=== PATIENT | male | born 2000 | race Caucasian/White ===

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

== ENCOUNTER 2021-04-12 23:18 | Emergency (ER) | payer MEDICAID ==
[~2021-04-12] VITALS: Ht 185.5 cm; Wt 88.0 kg
[~2021-04-12 23:18] MED LIST: ASPI1TAB14 PO; ATOM25CA5 PO; CETI10TA23 PO; CLN.1T PO; FAMO20TA3 PO; FLUT12AE4 IH; HYDR-700 PO; LURA20TA PO; MAGN200T8 PO; MELA1TAB24 SL; SUCR1ORA5 PO
[2021-04-12 23:22] VITALS: BP 143/90
--- NOTE | 2021-04-12 23:36 | ED Psychosocial ---
General Chief Complaint: Psych/Social Disorder Stated Complaint: PSYCH EVAL Source: patient Exam Limitations: no limitations History of Present Illness Date Seen by Provider: Apr 12, 2021 Time Seen by Provider: 23:15 Initial Comments Patient to the ER by EMS from home with chief complaint that he made a suicidal sounding comment earlier in the evening and his staff showed up hours later and insisted he come out for a mental health screen. Patient said he was very angry at another friend and in an outburst he said that he was asking to go on standing [place] traffic [place] [address] He says he was never feeling suicidal. He does not feel suicidal now and he has not felt suicidal since 3 years ago. At that time he was in [place] and went to [facility] for 3 days inpatient psychiatric and he has felt better since then. He does not follow with a counselor anymore. The state since his meds to him and someone comes in from [facility] twice a day to give him his medicines. He lives in independent apartment. Allergies and Home Medications Allergies Coded Allergies: diphenhydramine (Unverified Allergy, Intermediate, 07/27/19) fluoxetine (Unverified Allergy, Intermediate, 07/27/19) sertraline (Unverified Allergy, Intermediate, 07/27/19) Home Medications Clonidine HCl 0.1 Mg Tablet, 0.1 MG PO BID, (Reported) Famotidine 20 Mg Tablet, 20 MG PO BID, (Reported) Patient Home Medication List Home Medication List Reviewed: Yes Review of Systems Constitutional: No chills, No diaphoresis EENTM: No ear discharge, No ear pain Respiratory: No cough, No short of breath Cardiovascular: No chest pain, No palpitations Gastrointestinal: No abdominal pain, No nausea, No vomiting Genitourinary: No discharge, No dysuria Musculoskeletal: No back pain, No joint pain Psychiatric/Neurological: See HPI (Bipolar, PTSD) All Other Systems Reviewed Negative Unless Noted: Yes Past Jbduxye-Tsemnd-Rlcihc Hx Patient Social History 2nd Hand Smoke Exposure: No Recent Hopitalizations: No Seasonal Allergies Seasonal Allergies: No Past Medical History Surgeries: No Respiratory: No Cardiac: No Neurological: No Genitourinary: No Gastrointestinal: Yes Gastroesophageal Reflux Musculoskeletal: No Endocrine: No HEENT: No Cancer: No Psychosocial: Yes Anxiety, PTSD Integumentary: No Blood Disorders: No Physical Exam Capillary Refill : Height, Weight, BMI Height: '" Weight: lbs. oz. kg; 23.00 BMI Method: General Appearance: WD/WN, no apparent distress HEENT: PERRL/EOMI, pharynx normal Neck: full range of motion, normal inspection Respiratory: lungs clear, normal breath sounds, no respiratory distress, no accessory muscle use Cardiovascular: normal peripheral pulses, regular rate, rhythm Peripheral Pulses: 2+ Radial Pulses (R), 2+ Radial Pulses (L) Neurologic/Psychiatric: alert, normal mood/affect, oriented x 3 Appearance/Memory: appropriate appearance, appropriate insight, neat, no memory impairment Behavior/Eye Contact: cooperative, good eye contact, normal speech Thoughts/Hallucinations: normal thought pattern, no apparent hallucination, other (Denies suicidal or homicidal ideation) Progress/Results/Core Measures Progress Progress Note : Time: 23:36 Progress Note Had a lengthy discussion with the patient. Gave some counseling and recommended the save line. Call the save line and will have them follow-up with him in the morning with a phone call. Patient is okay with this plan. He is adamant that he was never suicidal. He says he just had an angry outburst which is part of his bipolar disorder. Departure Impression Primary Impression: Outbursts of anger Disposition: 01 HOME, SELF-CARE Condition: Stable Departure-Patient Inst. Decision time for Depature: 23:37 Referrals: NO,LOCAL PHYSICIAN (PCP) Primary Care Physician BRADLEY BOWIE APRN (Family) Primary Care Physician Patient Instructions: NO INSTRUCTIONS GIVEN Add. Discharge Instructions: [phone] [id number] if you have any further concerns, suicidal thoughts, anger, depression or anxiety issues that you wants immediate help with. They can also help you set up counseling, or recommend treatment if you feel this would be of benefit. They will call you in the morning just to check in on you. Return to the ER at any time if you are having worsening, suicidal thoughts or other worrisome concerns. All discharge instructions reviewed with patient and/or family. Voiced understanding. CLAUDETTE CHIU Apr 12, 2021 23:36
== END 2021-04-12 23:45 | disposition home or self-care (01) ==
LOC: EDUNIT# 23:18 → ER 23:19
DX: R45.4 Irritability and anger (principal); K21.9 Gastro-esophageal reflux disease without esophagitis; Z79.899 Other long term (current) drug therapy
CPT/HCPCS: 99284

== ENCOUNTER 2022-11-23 22:10 | Emergency (ER) | payer MEDICAID ==
[~2022-11-23] VITALS: Ht 185.4 cm; Wt 71.6 kg
[~2022-11-23 22:10] MED LIST changes: -CETI10TA23 PO; +CETI10TA24 PO
[2022-11-23] MEDS ORDERED: KETOROLAC 30 MG/ML VIAL IVP ONE (22:30)
[2022-11-23] MEDS ORDERED: LACTATED RINGERS 1,000 ML IV ONE (22:30)
[2022-11-23 22:43] LABS: BASOPHILS % (AUTO) 0 % (0-10); EOSINOPHILS # (AUTO) 0.1 10^3/uL (0.0-0.3); EOSINOPHILS % (AUTO) 1 % (0-10); HEMATOCRIT 42 % (40-54); HEMOGLOBIN 14.4 g/dL (13.3-17.7); LYMPHOCYTES # (AUTO) 2.3 10^3/uL (1.0-4.0); LYMPHOCYTES % (AUTO) 30 % (12-44); MEAN CORPUSCULAR HEMOGLOBIN 30 pg (25-34); MEAN CORPUSCULAR HGB CONC 34 g/dL (32-36); MEAN CORPUSCULAR VOLUME 88 fL (80-99); MEAN PLATELET VOLUME 9.5 fL (9.0-12.2); MONOCYTES # (AUTO) 0.5 10^3/uL (0.0-1.0); MONOCYTES % (AUTO) 7 % (0-12); NEUTROPHILS # (AUTO) 4.6 10^3/uL (1.8-7.8); NEUTROPHILS % (AUTO) 61 % (42-75); PLATELET COUNT 253 10^3/uL (130-400); WHITE BLOOD COUNT 7.5 10^3/uL (4.3-11.0)
[2022-11-23 22:54] LABS: AMPHETAMINE SCREEN, URINE NEGATIVE (NEGATIVE); BARBITURATE SCREEN URINE NEGATIVE (NEGATIVE); BENZODIAZEPINES SCREEN URINE NEGATIVE (NEGATIVE); CANNABINOID SCREEN, URINE POSITIVE (NEGATIVE); COCAINE SCREEN URINE NEGATIVE (NEGATIVE); METHADONE STAT NEGATIVE (NEGATIVE); OPIATE SCREEN URINE NEGATIVE (NEGATIVE); OXYCODONE STAT NEGATIVE (NEGATIVE); PROPOXYPHENE STAT NEGATIVE (NEGATIVE); TRICYCLIC ANTIDEPRESSANTS SCRE NEGATIVE (NEGATIVE)
[2022-11-23 22:58] LABS: ALBUMIN 4.2 GM/DL (3.2-4.5); CHLORIDE 108 MMOL/L (98-107); POTASSIUM 3.8 MMOL/L (3.6-5.0); SODIUM 141 MMOL/L (135-145)
[2022-11-23 23:00] LABS: CALCIUM 9.4 MG/DL (8.5-10.1)
[2022-11-23 23:01] LABS: GLUCOSE 110 MG/DL (70-105); TOTAL PROTEIN 6.9 GM/DL (6.4-8.2)
[2022-11-23 23:02] LABS: CARBON DIOXIDE 23 MMOL/L (21-32)
[2022-11-23 23:03] LABS: BILIRUBIN,TOTAL 0.3 MG/DL (0.1-1.0)
[2022-11-23 23:04] LABS: ALKALINE PHOSPHATASE 93 U/L (40-136); CREATININE SERUM 0.88 MG/DL (0.60-1.30); GFR ESTIMATED 125
[2022-11-23 23:05] LABS: BUN/CREATININE RATIO 11
[2022-11-23 23:07] LABS: ALANINE AMINOTRANSFERASE 19 U/L (0-55)
--- NOTE | 2022-11-23 23:12 | ED Psychosocial ---
General Chief Complaint: Substance Abuse Stated Complaint: SUBSTANCE ABUSE Nursing Triage Note: PT TO [facility] BY EMS WITH C/O SUSPECTED UNRESPONSIVE EPSIODE. EMS REPORTS PT USED A DAB PEN AND WAS FOUND ON THE BATHROOM FLOOR. EMS STATES WHEN THEY GOT THERE PT WAS RESPONSIVE BUT HAS BEEN "LETHARGIC." PT STATES HE IS WEAK, NUMB, TIRED AND HAS A DUMONT. PT A&OX4 Source: patient, EMS Exam Limitations: no limitations History of Present Illness Date Seen by Provider: Nov 23, 2022 Time Seen by Provider: 22:11 Allergies and Home Medications Allergies Coded Allergies: diphenhydramine (Unverified Allergy, Intermediate, 07/27/19) fluoxetine (Unverified Allergy, Intermediate, 07/27/19) sertraline (Unverified Allergy, Intermediate, 07/27/19) Patient Home Medication List Aspirin/Acetaminophen/Caffeine (Excedrin Migraine Geltab) 1 Each Tablet, 1 EACH PO, (Reported) Entered as Reported by: DULCE RED on 07/27/191827 Atomoxetine HCl (Atomoxetine HCl) 25 Mg Capsule, 25 MG PO, (Reported) Entered as Reported by: DULCE RED on 07/27/191827 Cetirizine HCl (Cetirizine HCl) 10 Mg Tab.chew, 10 MG PO, (Reported) Entered as Reported by: DULCE RED on 07/27/191827 Clonidine HCl (Clonidine HCl) 0.1 Mg Tablet, 0.1 MG PO BID, (Reported) Entered as Reported by: DULCE RED on 07/27/191827 Famotidine (Acid Program Counselor (FAMOTIDINE)) 20 Mg Tablet, 20 MG PO BID, (Reported) Entered as Reported by: DULCE RED on 07/27/191827 Fluticasone/Salmeterol (Advair Hfa 115-21 Mcg Inhaler) 12 Gm Hfa.aer.ad, 12 GM IH, (Reported) Entered as Reported by: DULCE RED on 07/27/191827 Hydroxyzine HCl (Hydroxyzine HCl) 25 Mg Tablet, 25 MG PO, (Reported) Entered as Reported by: DULCE RED on 07/27/191827 Lurasidone HCl (Latuda) 20 Mg Tablet, 20 MG PO, (Reported) Entered as Reported by: DULCE RED on 07/27/191827 Magnesium Oxide (Mag-Oxide) 200 Mg Tablet, 200 MG PO, (Reported) Entered as Reported by: DULCE RED on 07/27/191827 Melatonin (Melatonin) 1 Mg Tab.subl, 1 MG SL, (Reported) Entered as Reported by: DULCE RED on 07/27/191827 Sucralfate (Carafate) 1 Gm/10 Ml Oral.susp, 1 GM PO, (Reported) Entered as Reported by: DULCE RED on 07/27/191827 Past Qgglvdr-Bfdvke-Mgzgxl Hx Patient Social History Tobacco Use?: Yes Tobacco type used: Cigarettes Smoking Status: Current Everyday Smoker Substance use?: Yes Substance type: Methamphetamine, Marijuana Substance frequency: Daily Alcohol Use?: No Pt feels they are or have been: No Immunizations Up To Date Influenza Vaccine Up-to-Date: Yes; Up-to-Date First/Initial COVID19 Vaccinat: NOV 2020 Second COVID19 Vaccination Jose: DECEMBER 2020 Third COVID19 Vaccination Date: NOV 2020 Seasonal Allergies Seasonal Allergies: No Past Medical History Surgeries: No Respiratory: No Cardiac: No Neurological: No Genitourinary: No Gastrointestinal: Yes Gastroesophageal Reflux Musculoskeletal: No Endocrine: No HEENT: No Cancer: No Psychosocial: Yes Anxiety, PTSD Integumentary: No Blood Disorders: No Physical Exam Vital Signs - First Documented 11/23/22 22:12 Temp 36.4 Pulse 68 Resp 14 B/P (MAP) 139/86 (103) Pulse Ox 99 O2 Delivery Room Air Capillary Refill : Less Than 3 Seconds Height, Weight, BMI Height: '" Weight: lbs. oz. kg; 20.00 BMI Method: Progress/Results/Core Measures Results/Orders Lab Results Laboratory Tests Test 11/23/22 22:32 11/23/22 22:39 Range/Units White Blood Count 7.5 4.3-11.0 10^3/uL Red Blood Count 4.78 4.30-5.52 10^6/uL Hemoglobin 14.4 13.3-17.7 g/dL Hematocrit 42 40-54 % Mean Corpuscular Volume 88 80-99 fL Mean Corpuscular Hemoglobin 30 25-34 pg Mean Corpuscular Hemoglobin Concent 34 32-36 g/dL Red Cell Distribution Width 11.9 10.0-14.5 % Platelet Count 253 130-400 10^3/uL Mean Platelet Volume 9.5 9.0-12.2 fL Immature Granulocyte % (Auto) 0 % Neutrophils (%) (Auto) 61 42-75 % Lymphocytes (%) (Auto) 30 12-44 % Monocytes (%) (Auto) 7 0-12 % Eosinophils (%) (Auto) 1 0-10 % Basophils (%) (Auto) 0 0-10 % Neutrophils # (Auto) 4.6 1.8-7.8 10^3/uL Lymphocytes # (Auto) 2.3 1.0-4.0 10^3/uL Monocytes # (Auto) 0.5 0.0-1.0 10^3/uL Eosinophils # (Auto) 0.1 0.0-0.3 10^3/uL Basophils # (Auto) 0.0 0.0-0.1 10^3/uL Immature Granulocyte # (Auto) 0.0 0.0-0.1 10^3/uL Sodium Level 141 135-145 MMOL/L Potassium Level 3.8 3.6-5.0 MMOL/L Chloride Level 108 H 98-107 MMOL/L Carbon Dioxide Level 23 21-32 MMOL/L Anion Gap 10 5-14 MMOL/L Blood Urea Nitrogen 10 7-18 MG/DL Creatinine 0.88 0.60-1.30 MG/DL Estimat Glomerular Filtration Rate 125 BUN/Creatinine Ratio 11 Glucose Level 110 H 70-105 MG/DL Calcium Level 9.4 8.5-10.1 MG/DL Corrected Calcium 9.2 8.5-10.1 MG/DL Total Bilirubin 0.3 0.1-1.0 MG/DL Aspartate Amino Transf (AST/SGOT) 17 5-34 U/L Alanine Aminotransferase (ALT/SGPT) 19 0-55 U/L Alkaline Phosphatase 93 40-136 U/L Total Protein 6.9 6.4-8.2 GM/DL Albumin 4.2 3.2-4.5 GM/DL Serum Alcohol < 10 <10 MG/DL Urine Opiates Screen NEGATIVE NEGATIVE Urine Oxycodone Screen NEGATIVE NEGATIVE Urine Methadone Screen NEGATIVE NEGATIVE Urine Propoxyphene Screen NEGATIVE NEGATIVE Urine Barbiturates Screen NEGATIVE NEGATIVE Ur Tricyclic Antidepressants Screen NEGATIVE NEGATIVE Urine Phencyclidine Screen NEGATIVE NEGATIVE Urine Amphetamines Screen NEGATIVE NEGATIVE Urine Methamphetamines Screen NEGATIVE NEGATIVE Urine Benzodiazepines Screen NEGATIVE NEGATIVE Urine Cocaine Screen NEGATIVE NEGATIVE Urine Cannabinoids Screen POSITIVE H NEGATIVE My Orders Orders - DHIRAJ HUMPHREY MD Alcohol (11/23/22 22:19) Cbc With Automated Diff (11/23/22 22:19) Comprehensive Metabolic Panel (11/23/22 22:19) Drug Screen Stat (Urine) (11/23/22 22:19) Valproic Acid (11/23/22 22:19) Ed Iv/Invasive Line Start (11/23/22 22:19) Lactated Ringers (Lr 1000 Ml Iv Solution (11/23/22 22:30) Ketorolac Injection (Toradol Injection) (11/23/22 22:30) Medications Given in ED Current Medications Medications Dose Ordered Sig/Sade Route Start Time Stop Time Status Last Admin Dose Admin Ketorolac Tromethamine 30 mg ONCE ONCE IVP 11/23/22 22:30 11/23/22 22:31 DC 11/23/22 22:31 30 MG Lactated Ringer's 1,000 ml @ 0 mls/hr Q0M ONCE IV 11/23/22 22:30 11/23/22 22:31 DC 11/23/22 22:31 0 MLS/HR Vital Signs/I&O 11/23/22 22:12 Temp 36.4 Pulse 68 Resp 14 B/P (MAP) 139/86 (103) Pulse Ox 99 O2 Delivery Room Air Blood Pressure Mean: 103 Departure Impression Primary Impression: Cannabis derivative overdose Qualified Codes: T40.711A - Poisoning by cannabis, accidental (unintentional), initial encounter Additional Impression: Altered mental status Qualified Codes: R41.82 - Altered mental status, unspecified Disposition: 01 HOME, SELF-CARE Condition: Improved Departure-Patient Inst. Decision time for Depature: 23:17 Referrals: NO,LOCAL PHYSICIAN (PCP/Family) Primary Care Physician Patient Instructions: ALCOHOL AND SUBSTANCE ABUSE, Accidental Overdose Add. Discharge Instructions: Avoid use of marijuana, other forms of THC, and other potent mind altering substances. These substances are likely to cause exacerbations of mental health disturbances and may cause severe mental or health consequences. Return to care if you have persistent or worsening symptoms. All discharge instructions reviewed with patient and/or family. Voiced understanding. DHIRAJ HUMPHREY MD Nov 23, 2022 23:12
[2022-11-23 23:15] LABS: VALPROIC ACID < 2.0 UG/ML (50.0-100.0)
[2022-11-23 23:27] VITALS: BP 147/86
== END 2022-11-23 23:28 | disposition home or self-care (01) ==
LOC: EDUNIT# 22:10 → ER 22:11
DX: T40.711A Poisoning by cannabis, accidental (unintentional), initial encounter (principal); R41.82 Altered mental status, unspecified; F17.210 Nicotine dependence, cigarettes, uncomplicated
CPT/HCPCS: 80053; 80164; 80306; 85025; 99281; G0480; 36415; 80320